=== PATIENT | male | born 1980 | race Two or more races ===

== ENCOUNTER 2016-08-20 15:57 | Emergency (ER) | payer MEDICAID ==
[~2016-08-20] VITALS: Ht 175.3 cm; Wt 117.9 kg
[~2016-08-20 15:57] MED LIST: ALBUTEROL2.5 MG/3 M HHN; AMLODIPINE BESY10 MG ORAL; ASPIRIN500 MG ORAL; ATIVAN1 MG ORAL; NORCO1 EA ORAL; OMEPRAZOLE20 M2 ORAL; ONDANSETRON ODT4 MG ORAL; PRILOSEC20 MG ORAL; PROPANOL; PROPANOLOL; RANITIDINE HCL150 MG PO; RANTIDINE; ZANTAC 7575 MG PO; ZANTAC150 MG PO
[2016-08-20 16:09] VITALS: BP 139/86
--- NOTE | 2016-08-20 16:14 | Emergency Room Report ---
History of Present Illness General Chief Complaint: Palpitations Source: Patient Present Illness HPI Patient is a 36-year-old male presented after increased palpitations. Patient gradual onset of symptoms. Patient was noted to have intermittent episodes which he felt like his heart was racing. Patient prior history of similar symptoms and had been taking Cardizem as well as beta antwon. The patient denied any recent fever. He reported have some episodes of vomiting earlier in the day. The patient denied any chest pain. He denies any prior cardiac history and states that a negative stress test with a past one year. Allergies: Coded Allergies: No Known Allergies (Unverified , 03/22/12) Patient History Past Medical History: see triage record Reviewed Nursing Documentation: PMH: Agreed, PSxH: Agreed Nursing Documentation-PMH Past Medical History: No History, Except For Hx Hypertension: Yes Hx Asthma: Yes Hx Gastrointestinal Problems: Yes - gerd pancreatitis for one year Review of Systems All Other Systems: negative except mentioned in HPI Physical Exam Vital Signs Date Time Temp Pulse Resp B/P Pulse Ox O2 Delivery O2 Flow Rate FiO2 08/20/16 16:00 97.7 87 16 152/84 100 Room Air Sp02 EP Interpretation: reviewed, normal General Appearance: normal inspection, well appearing, no apparent distress, alert, GCS 15 Head: atraumatic ENT: normal ENT inspection, hearing grossly normal, normal voice, uvula midline , tonsillar swelling Neck: normal inspection, full range of motion, supple, no bony tend Respiratory: normal inspection, lungs clear, normal breath sounds, no respiratory distress, no retraction, no wheezing Cardiovascular #1: regular rate, rhythm, no edema Gastrointestinal: normal inspection, normal bowel sounds, non tender, soft, no guarding, no hernia Genitourinary: no CVA tenderness Musculoskeletal: normal inspection, back normal, normal range of motion Neurologic: normal inspection, alert, oriented x3, responsive, assistant designer III-XII nml as tested, speech normal Psychiatric: normal inspection, judgement/insight normal, mood/affect normal Skin: normal inspection, normal color, no rash Medical Decision Making Diagnostic Impression: Primary Impression: Palpitations ER Course .Patient presented for palpitations. The differential diagnosis included was not limited to arrhythmia, thyroid storm, sepsis, anemia, myocardial infarction , alcohol withdrawal, stimulant abuse, caffeine overdose among others. Because of complexity of patient's case laboratory testing and imaging studies were ordered.Patient presented for palpitations.Patient presented for palpitations. The differential diagnosis included was not limited to arrhythmia, thyroid storm , sepsis, anemia, myocardial infarction, alcohol withdrawal, stimulant abuse, caffeine overdose among others. Because of complexity of patient's case laboratory testing and imaging studies were ordered. Laboratory testing was unremarkable. Patient stated he felt better. Patient was advised to continue his previously prescribed medications and to return if he had any worsening of condition or concerning signs or symptoms. Laboratory Tests Test 08/20/16 16:19 White Blood Count 6.2 K/UL (4.8-10.8) Red Blood Count 5.31 M/UL (4.70-6.10) Hemoglobin 15.2 G/DL (14.2-18.0) Hematocrit 45.0 % (42.0-52.0) Mean Corpuscular Volume 85 FL (80-99) Mean Corpuscular Hemoglobin 28.5 PG (27.0-31.0) Mean Corpuscular Hemoglobin Concent 33.7 G/DL (32.0-36.0) Red Cell Distribution Width 11.4 % (11.6-14.8) L Platelet Count 225 K/UL (150-450) Mean Platelet Volume 9.6 FL (6.5-10.1) Neutrophils (%) (Auto) 67.2 % (45.0-75.0) Lymphocytes (%) (Auto) 24.7 % (20.0-45.0) Monocytes (%) (Auto) 6.3 % (1.0-10.0) Eosinophils (%) (Auto) 0.7 % (0.0-3.0) Basophils (%) (Auto) 1.1 % (0.0-2.0) Sodium Level 140 mEQ/L (135-145) Potassium Level 3.9 mEQ/L (3.4-4.9) Chloride Level 99 mEQ/L (98-107) Carbon Dioxide Level 24 mEQ/L (20-30) Anion Gap 17 (5-15) H Blood Urea Nitrogen 14 mg/dL (7-23) Creatinine 0.7 mg/dL (0.7-1.2) Estimate Glomerular Filtration Rate > 60 mL/min (>60) Glucose Level 88 mg/dL (74-106) Calcium Level 9.5 mg/dL (8.6-10.2) Total Bilirubin 0.5 mg/dL (0.0-1.2) Aspartate Amino Transferase (AST) 17 U/L (5-40) Alanine Aminotransferase (ALT) 21 U/L (3-41) Alkaline Phosphatase 51 U/L (40-129) Troponin I < 0.30 ng/mL (<=0.30) Total Protein 7.5 g/dL (6.6-8.7) Albumin 4.7 g/dL (3.5-5.2) Globulin 2.8 g/dL Albumin/Globulin Ratio 1.6 (1.0-2.7) Urine Opiates Screen Negative (NEGATIVE) Urine Barbiturates Screen Negative (NEGATIVE) Phencyclidine (PCP) Screen Negative (NEGATIVE) Urine Amphetamines Screen Negative (NEGATIVE) Urine Benzodiazepines Screen Negative (NEGATIVE) Urine Cocaine Screen Negative (NEGATIVE) Urine Marijuana (THC) Screen Negative (NEGATIVE) EKG Diagnostic Results Rate: normal Rhythm: NSR ST Segments: no acute changes Rhythm Strip Diag. Results EP Interpretation: yes Rhythm: NSR, no PVC's, no ectopy Chest X-Ray Diagnostic Results EP Interpretation: Yes Findings: no consolidation, no effusion, no pneumothorax, no acute cardiopulmonary disease Number of Views: 1 Last Vital Signs Date Time Temp Pulse Resp B/P Pulse Ox O2 Delivery O2 Flow Rate FiO2 08/20/16 16:09 97.7 85 26 139/86 100 Room Air Status: improved Disposition: HOME, SELF-CARE Condition: Stable Parviz Delacruz Aug 20, 2016 16:14
[2016-08-20 16:52] LABS: BASOPHILS % (AUTO) 1.1 % (0.0-2.0); EOSINOPHILS % (AUTO) 0.7 % (0.0-3.0); LYMPHOCYTES % (AUTO) 24.7 % (20.0-45.0); MEAN CORPUSCULAR HEMOGLOBIN 28.5 PG (27.0-31.0); MEAN CORPUSCULAR HGB CONC 33.7 G/DL (32.0-36.0); MEAN CORPUSCULAR VOLUME 85 FL (80-99); MEAN PLATELET VOLUME 9.6 FL (6.5-10.1); MONOCYTES % (AUTO) 6.3 % (1.0-10.0); NEUTROPHILS % (AUTO) 67.2 % (45.0-75.0); PLATELET COUNT 225 K/UL (150-450); RED BLOOD COUNT 5.31 M/UL (4.70-6.10); RED CELL DISTRIBUTION WIDTH 11.4 % (11.6-14.8); WHITE BLOOD COUNT 6.2 K/UL (4.8-10.8)
[2016-08-20 17:05] LABS: TROPONIN I < 0.30 ng/mL (<=0.30)
[2016-08-20 17:08] LABS: ALANINE AMINOTRANSFERASE 21 U/L (3-41); ALBUMIN/GLOBULIN RATIO 1.6 (1.0-2.7); ANION GAP 17 (5-15); ASPARTATE AMINO TRANSFERASE 17 U/L (5-40); CALCIUM 9.5 mg/dL (8.6-10.2); CARBON DIOXIDE 24 mEQ/L (20-30); CHLORIDE 99 mEQ/L (98-107); CREATININE 0.7 mg/dL (0.7-1.2); GLOMERULAR FILTRATION RATE > 60 mL/min (>60); HEMOLYSIS 5; POTASSIUM 3.9 mEQ/L (3.4-4.9); SODIUM 140 mEQ/L (135-145); TOTAL PROTEIN 7.5 g/dL (6.6-8.7)
[2016-08-20 17:28] VITALS: BP 139/86
--- NOTE | 2016-08-21 09:59 | Diagnostic Imaging Report ---
Indication: PAIN Technique: One view of the chest Comparison: 05/24/2014 Findings: Lungs and pleural spaces are clear. Heart size is normal. No significant change Impression: No acute process
--- NOTE | 2016-08-23 03:10 | Cardiology Report ---
APPROVED REPORT EKG Measurement Heart [id number] Normal sinus rhythm Normal ECG
== END 2016-08-20 17:30 | disposition home or self-care (01) ==
LOC: EMR 16:22
DX: R00.2 Palpitations (principal); I10 Essential (primary) hypertension; J45.909 Unspecified asthma, uncomplicated; K21.9 Gastro-esophageal reflux disease without esophagitis
CPT/HCPCS: 36415; 71010; 80053; 80300; 84484; 85025; 93005; 99283

== ENCOUNTER 2016-11-23 08:59 | Emergency (ER) | payer MEDICAID ==
[~2016-11-23] VITALS: Ht 172.7 cm; Wt 115.7 kg
[2016-11-23 09:10] VITALS: BP 135/92
[2016-11-23] MEDS ORDERED: OMEPRAZOLE20 M3 ORAL (09:16)
--- NOTE | 2016-11-23 09:19 | Emergency Room Report ---
History of Present Illness General Chief Complaint: Sore Throat Source: Patient Present Illness HPI Patient is a 36-year-old male who presented after increased sore throat. Patient gradual onset of symptoms over the past 2 weeks. Patient had recently been started on azithromycin by his primary care physician several days ago. Patient denied any fever. He had prior history of gastroesophageal reflux disease. Patient reports having a recent alcohol use as well as increased by spicy food. Patient denies any change in his voice. He had not had any neck stiffness. Allergies: Coded Allergies: No Known Allergies (Unverified , 03/22/12) Patient History Reviewed Nursing Documentation: PMH: Agreed, PSxH: Agreed Nursing Documentation-PM Past Medical History: No History, Except For Hx Hypertension: Yes Hx Asthma: Yes Hx Gastrointestinal Problems: Yes - gerd, pancreatitis Review of Systems All Other Systems: negative except mentioned in HPI Physical Exam Vital Signs Date Time Temp Pulse Resp B/P Pulse Ox O2 Delivery O2 Flow Rate FiO2 11/23/16 09:04 98.2 78 18 135/92 98 Room Air General Appearance: well appearing, no apparent distress Head: normocephalic, atraumatic ENT: hearing grossly normal, normal voice Neck: full range of motion, supple Respiratory: no respiratory distress, speaking full sentences Gastrointestinal: normal inspection, non tender, soft Musculoskeletal: no calf tenderness Neurologic: normal gait Psychiatric: mood/affect normal Skin: no rash Medical Decision Making Diagnostic Impression: Primary Impression: Tonsillitis ER Course Patient presented per sore throat. Differential diagnosis included but was not limited to meningitis, exudative tonsillitis, retropharyngeal abscess, epiglottitis, strep pharyngitis. Patient's benign exam and does not appear to require any further imaging or laboratory testing at this time. The patient is advised to follow up with primary care doctor in 1-2 days. Patient is advised to return if any worsening condition or if any changes in status that are concerning. Last Vital Signs Date Time Temp Pulse Resp B/P Pulse Ox O2 Delivery O2 Flow Rate FiO2 11/23/16 09:10 98.2 73 18 135/92 98 Room Air Status: improved Disposition: HOME, SELF-CARE Condition: Stable Scripts Omeprazole (OMEPRAZOLE) 20 Mg Tablet. 20 MG ORAL DAILY, #30 TAB Prov: Parviz Delacruz 11/23/16 Referrals: primary care physician Patient Instructions: Tonsillitis, Gastroesophageal Reflux Disease, Adult Parviz Delacruz November 23, 2016 09:19
[2016-11-23 09:29] VITALS: BP 135/92
== END 2016-11-23 09:31 | disposition home or self-care (01) ==
LOC: EMR 09:22
DX: J03.90 Acute tonsillitis, unspecified (principal); K21.9 Gastro-esophageal reflux disease without esophagitis; I10 Essential (primary) hypertension; J45.909 Unspecified asthma, uncomplicated
CPT/HCPCS: 99283

== ENCOUNTER 2017-03-29 08:05 | Emergency (ER) | payer BC, MEDICAID ==
[~2017-03-29] VITALS: Ht 175.3 cm; Wt 113.4 kg
[~2017-03-29 08:05] MED LIST changes: +OMEPRAZOLE20 M3 ORAL
[2017-03-29] MEDS ORDERED: Ciprofloxacin 500mg tab ORAL ONE (08:30)
--- NOTE | 2017-03-29 08:32 | Emergency Room Report ---
History of Present Illness General Chief Complaint: Earache Source: Patient Present Illness HPI The patient presents with left-sided sharp pain. It started yesterday. Coming from his ear and radiates down into his neck. He is able to swallow. He tried taking Tylenol and hasn't helped. The pain is severe at this time. Denies any fevers or chills. Denies any cough nausea vomiting diarrhea dysuria rashes. Feels that the lymph nodes were painful at this time however they don't feel to be swollen. Pain is 8/10, pressure and aching. Some pain with swallowing. He was seen in October with tonsillitis. 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: PMH: Agreed, PSxH: Agreed Nursing Documentation-PMH Past Medical History: No History, Except For Hx Hypertension: Yes Hx Asthma: Yes Hx Gastrointestinal Problems: Yes - gerd, pancreatitis Review of Systems All Other Systems: negative except mentioned in HPI Physical Exam Vital Signs Date Time Temp Pulse Resp B/P (MAP) Pulse Ox O2 Delivery O2 Flow Rate FiO2 03/29/17 08:10 98.1 88 18 136/94 98 Room Air Sp02 EP Interpretation: reviewed, normal General Appearance: well appearing, no apparent distress Head: normocephalic, atraumatic Eyes: bilateral eye normal inspection, bilateral eye PERRL ENT: hearing grossly normal, no angioedema, normal voice, moist mucus membranes , pharyngeal erythema, other - L Tm with min erythema, some mastoid tenderness Neck: full range of motion, supple, tender - laterally Respiratory: lungs clear, normal breath sounds, no respiratory distress, speaking full sentences Cardiovascular #1: regular rate, rhythm Gastrointestinal: normal inspection Musculoskeletal: back normal, digits/nails normal, gait/station normal, normal range of motion Neurologic: alert, normal gait, grossly normal Psychiatric: mood/affect normal Skin: no rash Lymphatic: adenopathy - neck Medical Decision Making Diagnostic Impression: Primary Impression: Earache, left Additional Impression: Tonsillitis ER Course Patient with ear, throat and neck tenderness. Ddx: OM, OE, mastoiditis, pharyngitis, viral syndrome, lymphadenitis amongst others. Exam most c/w OM with possible early mastoiditis. Needs antibiotic coverage with also coverage for possible pseudomonas. Not toxic and no evidence of meningitis. Exam not classic for strep. Noted patient treated for tonsilitis in past. Antibiotics and analgesia given in ED. Patient stable for outpatient observation and treatment. Last Vital Signs Date Time Temp Pulse Resp B/P (MAP) Pulse Ox O2 Delivery O2 Flow Rate FiO2 03/29/17 08:49 71 14 127/84 96 Room Air 03/29/17 08:10 98.1 Status: unchanged Disposition: HOME, SELF-CARE Condition: Improved Scripts Ibuprofen* (MOTRIN*) 600 Mg Tablet 600 MG ORAL Q6H Y for For Pain, #20 TAB Prov: Keith Gonzalez M.D. 03/29/17 Hydrocodone Bit/Acetaminophen 5-325* (NORCO 5-325*) 1 Each Tablet 1 TAB ORAL Q6H Y for For Pain, #10 TAB 0 Refills Prov: Keith Gonzalez M.D. 03/29/17 Ciprofloxacin Hcl* (CIPROFLOXACIN HCL*) 500 Mg Tablet 500 MG ORAL Q12H, #14 TAB 0 Refills Prov: Keith Gonzalez M.D. 03/29/17 Keith Gonzalez M.D. Mar 29, 2017 08:32
[2017-03-29] MEDS ORDERED: IBUPROFEN600 MG ORAL (08:34)
[2017-03-29] MEDS ORDERED: CIPROFLOXACIN500 M2 ORAL (08:34)
[2017-03-29] MEDS ORDERED: NORCO 5-325 TA1 EACH ORAL (08:34)
[2017-03-29 08:49] VITALS: BP 127/84
== END 2017-03-29 08:49 | disposition home or self-care (01) ==
LOC: EMR 08:36
DX: H92.02 Otalgia, left ear (principal); J03.91 Acute recurrent tonsillitis, unspecified; I10 Essential (primary) hypertension; J45.909 Unspecified asthma, uncomplicated
CPT/HCPCS: 99284

== ENCOUNTER 2017-04-05 16:56 | Emergency (ER) | payer BC, MEDICAID ==
[~2017-04-05] VITALS: Ht 175.3 cm; Wt 117.9 kg
[~2017-04-05 16:56] MED LIST changes: +CIPROFLOXACIN500 M2 ORAL; +IBUPROFEN600 MG ORAL; +NORCO 5-325 TA1 EACH ORAL
[2017-04-05 17:07] VITALS: BP 124/75
[2017-04-05] MEDS ORDERED: LORazepam Inj 2mg/ml 1ml IV ONE (17:15)
[2017-04-05 17:20] LABS: BASOPHILS % (AUTO) 1.4 % (0.0-2.0); EOSINOPHILS % (AUTO) 0.6 % (0.0-3.0); LYMPHOCYTES % (AUTO) 23.1 % (20.0-45.0); MEAN CORPUSCULAR HEMOGLOBIN 27.5 PG (27.0-31.0); MEAN CORPUSCULAR HGB CONC 30.9 G/DL (32.0-36.0); MEAN CORPUSCULAR VOLUME 89 FL (80-99); MEAN PLATELET VOLUME 9.3 FL (6.5-10.1); MONOCYTES % (AUTO) 5.3 % (1.0-10.0); NEUTROPHILS % (AUTO) 69.6 % (45.0-75.0); PLATELET COUNT 268 K/UL (150-450); RED BLOOD COUNT 5.93 M/UL (4.70-6.10); RED CELL DISTRIBUTION WIDTH 11.4 % (11.6-14.8); WHITE BLOOD COUNT 8.9 K/UL (4.8-10.8)
--- NOTE | 2017-04-05 17:29 | Emergency Room Report ---
History of Present Illness General Chief Complaint: Chest Pain Source: Patient Present Illness HPI Patient presents feeling palpitations and pressure in his chest that began this morning. He has episodes where his heart rate is rapid. He feels anxious with this and short of breath. Is also some nausea. He took propranolol approximately an hour ago, 10 mg. He states he feels somewhat better at this time but he still feels anxious. He's had this problem before. He was treated for otitis 2 weeks ago here. Saw his private doctor last week and was told that his potassium was low and his triglycerides are high. His HTN meds were switched at that time. The patient was drinking beer yesterday but not an excessive amount of. He does feel stressed and is approaching 6 days off of work. The patient denies any fevers, sore throat, vomiting, diarrhea, dysuria. The patient is been seen for this problem in the past. 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 Nursing Documentation: PMH: Agreed, PSxH: Agreed Nursing Documentation-PMH Hx Hypertension: Yes Hx Asthma: Yes Hx Gastrointestinal Problems: Yes - gerd, pancreatitis Review of Systems All Other Systems: negative except mentioned in HPI Physical Exam Vital Signs Date Time Temp Pulse Resp B/P (MAP) Pulse Ox O2 Delivery O2 Flow Rate FiO2 04/05/17 16:57 98.2 89 20 128/88 99 Room Air Sp02 EP Interpretation: reviewed, normal General Appearance: well appearing, no apparent distress, GCS 15 Head: normocephalic Eyes: bilateral eye normal inspection, bilateral eye PERRL ENT: moist mucus membranes Neck: supple Respiratory: lungs clear, normal breath sounds Cardiovascular #1: regular rate, rhythm Cardiovascular #2: 2+ radial (R) Gastrointestinal: normal inspection, normal bowel sounds, non tender, no mass, non-distended, overweight Musculoskeletal: back normal, gait/station normal, normal range of motion Neurologic: alert, oriented x3, grossly normal Psychiatric: anxious Skin: normal inspection, warm/dry Medical Decision Making Diagnostic Impression: Primary Impression: Palpitations Additional Impressions: Anxiety Hypokalemia ER Course Patient presents with palpitations and chest pressure with anxiety. Differential includes acute myocardial infarction, arrhythmia, anxiety, pulmonary embolus amongst others. Also he was recently told his potassium was low and so yet to be concerned about possible electrolyte abnormalities. The patient will be evaluated with EKG, chest x-ray and labs. The patient be treated with some IV hydration and Ativan. VS, exam and history against PE. EKG normal sinus rhythm normal EKG no evidence of acute injury. Labs with minimally low K. (K given). H/H high. Patient felt episode of rapid HR at 18:30. Review of monitor revealed no arrhythmia. Patient improved. Discussed change in BP meds. Patient stable for outpatient observation and treatment. Laboratory Tests Test 04/05/17 17:03 04/05/17 17:35 White Blood Count 8.9 K/UL (4.8-10.8) Red Blood Count 5.93 M/UL (4.70-6.10) Hemoglobin 16.3 G/DL (14.2-18.0) Hematocrit 52.6 % (42.0-52.0) H Mean Corpuscular Volume 89 FL (80-99) Mean Corpuscular Hemoglobin 27.5 PG (27.0-31.0) Mean Corpuscular Hemoglobin Concent 30.9 G/DL (32.0-36.0) L Red Cell Distribution Width 11.4 % (11.6-14.8) L Platelet Count 268 K/UL (150-450) Mean Platelet Volume 9.3 FL (6.5-10.1) Neutrophils (%) (Auto) 69.6 % (45.0-75.0) Lymphocytes (%) (Auto) 23.1 % (20.0-45.0) Monocytes (%) (Auto) 5.3 % (1.0-10.0) Eosinophils (%) (Auto) 0.6 % (0.0-3.0) Basophils (%) (Auto) 1.4 % (0.0-2.0) Sodium Level 137 MMOL/L (136-145) Potassium Level 3.4 MMOL/L (3.5-5.1) L Chloride Level 100 MMOL/L (98-107) Carbon Dioxide Level 27 MMOL/L (21-32) Anion Gap 10 (5-15) Blood Urea Nitrogen 12 mg/dL (7-18) Creatinine 1.0 MG/DL (0.55-1.00) Estimate Glomerular Filtration Rate > 60 mL/min (>60) Glucose Level 102 MG/DL (74-106) Calcium Level 9.4 MG/DL (8.5-10.1) Total Bilirubin 0.5 MG/DL (0.2-1.0) Aspartate Amino Transferase (AST) 17 U/L (15-37) Alanine Aminotransferase (ALT) 28 U/L (12-78) Alkaline Phosphatase 63 U/L (46-116) Total Creatine Kinase 167 U/L (26-308) Troponin I 0.001 ng/mL (0.000-0.056) Pro-B-Type Natriuretic Peptide 9 (0-125) Total Protein 8.7 G/DL (6.4-8.2) H Albumin 4.2 G/DL (3.4-5.0) Globulin 4.5 g/dL Albumin/Globulin Ratio 0.9 (1.0-2.7) L Urine Color Pale yellow Urine Appearance Clear Urine pH 6 (4.5-8.0) Urine Specific [place] 1.020 (1.005-1.035) Urine Protein Negative (NEGATIVE) Urine Glucose (UA) Negative (NEGATIVE) Urine Ketones Negative (NEGATIVE) Urine Occult Blood Negative (NEGATIVE) Urine Nitrite Negative (NEGATIVE) Urine Bilirubin Negative (NEGATIVE) Urine Urobilinogen Normal MG/DL (0.0-1.0) Urine Leukocyte Esterase Negative (NEGATIVE) Urine Opiates Screen Negative (NEGATIVE) Urine Barbiturates Screen Negative (NEGATIVE) Phencyclidine (PCP) Screen Negative (NEGATIVE) Urine Amphetamines Screen Negative (NEGATIVE) Urine Benzodiazepines Screen Negative (NEGATIVE) Urine Cocaine Screen Negative (NEGATIVE) Urine Marijuana (THC) Screen Negative (NEGATIVE) EKG Diagnostic Results Rate: normal Rhythm: NSR ST Segments: no acute changes Rhythm Strip Diag. Results EP Interpretation: yes Rhythm: NSR, no PVC's, no ectopy Chest X-Ray Diagnostic Results Chest X-Ray Diagnostic Results : Chest X-Ray Ordered: Yes # of Views/Limited/Complete: 1 View Indication: Other Interpretation: no consolidation, no effusion, no pneumothorax, no acute cardiopulmonary disease Impression: No acute disease Electronically Signed by: Keith Gonzalez MD Last Vital Signs Date Time Temp Pulse Resp B/P (MAP) Pulse Ox O2 Delivery O2 Flow Rate FiO2 04/05/17 17:07 93 17 124/75 100 Room Air 10/8/17 16:57 98.2 Status: improved Disposition: HOME, SELF-CARE Condition: Improved Scripts Lorazepam* (ATIVAN*) 0.5 Mg Tablet 0.5 MG ORAL THREE TIMES A DAY, #10 TAB Prov: Keith Gonzalez M.D. 04/05/17 Triamterene/Hydrochlorothiazide* (DYAZIDE 37.5-25 MG TAB*) 1 Each Tablet 1 TAB ORAL DAILY, #30 TAB Prov: Keith Gonzalez M.D. 04/05/17 Lisinopril* (LISINOPRIL*) 10 Mg Tablet 10 MG ORAL DAILY, #30 TAB Prov: Keith Gonzalez M.D. 04/05/17 Keith Gonzalez M.D. Apr 05, 2017 17:29
[2017-04-05 17:44] LABS: ALANINE AMINOTRANSFERASE 28 U/L (12-78); ALBUMIN/GLOBULIN RATIO 0.9 (1.0-2.7); ANION GAP 10 (5-15); ASPARTATE AMINO TRANSFERASE 17 U/L (15-37); CALCIUM 9.4 MG/DL (8.5-10.1); CARBON DIOXIDE 27 MMOL/L (21-32); CHLORIDE 100 MMOL/L (98-107); GLOMERULAR FILTRATION RATE > 60 mL/min (>60); POTASSIUM 3.4 MMOL/L (3.5-5.1); SODIUM 137 MMOL/L (136-145); TOTAL PROTEIN 8.7 G/DL (6.4-8.2)
[2017-04-05 17:54] LABS: APPEARANCE,URINE CLEAR; KETONES,URINE NEGATIVE (NEGATIVE); LEUKOCYTE ESTERASE ,URINE NEGATIVE (NEGATIVE); NITRITE,URINE NEGATIVE (NEGATIVE); PH,URINE 6 (4.5-8.0); PROTEIN,URINE NEGATIVE (NEGATIVE); UROBILINOGEN,URINE NORMAL MG/DL (0.0-1.0)
[2017-04-05] MEDS ORDERED: KCl 10% 40mEq/30ml liquid ORAL STA (18:26)
[2017-04-05] MEDS ORDERED: LISINOPRIL10 MG ORAL (19:33)
[2017-04-05] MEDS ORDERED: TRIAMTERENE-HC1 EAC5 ORAL (19:33)
[2017-04-05] MEDS ORDERED: ATIVAN0.5 MG ORAL (19:33)
[2017-04-05 19:56] VITALS: BP 124/75
--- NOTE | 2017-04-06 10:48 | Diagnostic Imaging Report ---
Indication: Dyspnea Comparison: 08/20/16 A single view chest radiograph was obtained. Findings: Lungs are clear. Cardio mediastinal silhouette and bones appear normal. Impression: No acute disease
--- NOTE | 2017-04-07 08:10 | Cardiology Report ---
APPROVED REPORT EKG Measurement Heart [id number] Normal sinus rhythm Normal ECG
== END 2017-04-05 19:56 | disposition home or self-care (01) ==
LOC: EMR 17:49
DX: R00.2 Palpitations (principal); F41.9 Anxiety disorder, unspecified; E87.6 Hypokalemia; R07.89 Other chest pain; I10 Essential (primary) hypertension; J45.909 Unspecified asthma, uncomplicated
CPT/HCPCS: 36415; 71010; 80053; 80300; 81003; 82550; 83880; 84484; 85025; 93005; 96374; 96375; 99284; J2405

== ENCOUNTER 2017-07-23 09:32 | Emergency (ER) | payer BC, MEDICAID ==
[~2017-07-23] VITALS: Ht 172.7 cm; Wt 90.7 kg
[~2017-07-23 09:32] MED LIST changes: +ATIVAN0.5 MG ORAL; +LISINOPRIL10 MG ORAL; +TRIAMTERENE-HC1 EAC5 ORAL
[2017-07-23] MEDS ORDERED: HYDROCHLOROTH12.5 M2 ORAL (09:44)
[2017-07-23] MEDS ORDERED: BENADRYL25 MG ORAL (09:47)
[2017-07-23] MEDS ORDERED: PREDNISONE20 MG ORAL (09:47)
[2017-07-23 09:53] VITALS: BP 156/85
[2017-07-23 09:56] VITALS: BP 156/85
--- NOTE | 2017-07-28 14:58 | Emergency Room Report ---
History of Present Illness General Chief Complaint: Skin Rash/Abscess Source: Patient Present Illness HPI Patient is a 37-year-old male brought in by self after increased the itchiness to his abdominal area. Patient reported having a generalized rash. This did not have any drainage. Patient prior history of eczema. He denied any recent fever or difficulty breathing. Allergies: Coded Allergies: No Known Allergies (Unverified , 03/22/12) Patient History Past Medical History: see triage record Reviewed Nursing Documentation: PMH: Agreed, PSxH: Agreed Nursing Documentation-PMH Past Medical History: No History, Except For Hx Hypertension: Yes Hx Asthma: Yes Hx Gastrointestinal Problems: Yes - gerd, pancreatitis Review of Systems All Other Systems: negative except mentioned in HPI Physical Exam Vital Signs Date Time Temp Pulse Resp B/P (MAP) Pulse Ox O2 Delivery O2 Flow Rate FiO2 07/23/17 09:42 98.4 90 16 156/85 99 Room Air General Appearance: well appearing, no apparent distress, alert, GCS 15 Head: normocephalic, atraumatic ENT: hearing grossly normal, normal voice Neck: full range of motion, supple Respiratory: no respiratory distress, speaking full sentences Cardiovascular #1: normal inspection, regular rate, rhythm, no edema Gastrointestinal: normal inspection, non tender, soft Musculoskeletal: normal inspection, back normal, digits/nails normal, gait/ station normal, no calf tenderness Neurologic: normal inspection, alert, oriented x3, normal gait Psychiatric: mood/affect normal Skin: other - generalized papular rash Medical Decision Making Diagnostic Impression: Primary Impression: Rash and nonspecific skin eruption ER Course Patient presented for skin rash. Differential diagnosis included was not limited to Keene-Roney syndrome, urticaria, erythema multiforme, contact dermatitis, eczema. Patient's benign exam and does not appear to require any further imaging or laboratory testing at this time. The patient appears have an eczematous skin eruption. Patient was given a prescription for oral steroid and antihistamine. the patient does not show any evidence of an acute allergic reaction The patient is advised to follow up with primary care doctor in 1-2 days. Patient is advised to return if any worsening condition or if any changes in status that are concerning. This report is dictated with [employer] associate software which may occasionally lead to discrepancies related to use of this software. Last Vital Signs Date Time Temp Pulse Resp B/P (MAP) Pulse Ox O2 Delivery O2 Flow Rate FiO2 07/23/17 09:56 98.4 90 16 156/85 99 Room Air Status: improved Disposition: HOME, SELF-CARE Condition: Stable Scripts Diphenhydramine Hcl* (BENADRYL*) 25 Mg Capsule 25 MG ORAL Q6H Y for Itching, #20 CAP Prov: Parviz Delacruz 07/23/17 Prednisone* (PREDNISONE*) 20 Mg Tablet 20 MG ORAL DAILY, #8 TAB 0 Refills Prov: Parviz Delacruz 07/23/17 Referrals: NOT CHOSEN IPA/MD,REFERRING Patient Instructions: Parviz Montanez Jul 28, 2017 14:58
== END 2017-07-23 09:58 | disposition home or self-care (01) ==
LOC: EMR 09:43
DX: R21 Rash and other nonspecific skin eruption (principal); J45.909 Unspecified asthma, uncomplicated; I10 Essential (primary) hypertension; K21.9 Gastro-esophageal reflux disease without esophagitis
CPT/HCPCS: 99283; J7512

== ENCOUNTER 2017-10-13 12:12 | Emergency (ER) | payer MEDICAID ==
[~2017-10-13] VITALS: Ht 175.3 cm; Wt 120.2 kg
[~2017-10-13 12:12] MED LIST changes: +BENADRYL25 MG ORAL; +HYDROCHLOROTH12.5 M2 ORAL; +PREDNISONE20 MG ORAL
[2017-10-13] MEDS ORDERED: NORVASC10 MG ORAL (12:20)
[2017-10-13] MEDS ORDERED: SERTRALINE HCL50 MG ORAL (12:20)
[2017-10-13 12:24] VITALS: BP 137/81
[2017-10-13 13:00] LABS: APPEARANCE,URINE CLEAR; BILIRUBIN, URINE NEGATIVE (NEGATIVE); COLOR,URINE PALE YELLOW; GLUCOSE, URINE (UA) NEGATIVE (NEGATIVE); KETONES,URINE NEGATIVE (NEGATIVE); LEUKOCYTE ESTERASE ,URINE NEGATIVE (NEGATIVE); NITRITE,URINE NEGATIVE (NEGATIVE); PH,URINE 5 (4.5-8.0); PROTEIN,URINE NEGATIVE (NEGATIVE); UROBILINOGEN,URINE NORMAL MG/DL (0.0-1.0)
[2017-10-13 13:09] LABS: BASOPHILS % (AUTO) 1.6 % (0.0-2.0); EOSINOPHILS % (AUTO) 0.8 % (0.0-3.0); HEMATOCRIT 47.3 % (42.0-52.0); HEMOGLOBIN 16.5 G/DL (14.2-18.0); LYMPHOCYTES % (AUTO) 22.7 % (20.0-45.0); MEAN CORPUSCULAR VOLUME 85 FL (80-99); MONOCYTES % (AUTO) 4.9 % (1.0-10.0); NEUTROPHILS % (AUTO) 69.9 % (45.0-75.0); PLATELET COUNT 211 K/UL (150-450); RED BLOOD COUNT 5.54 M/UL (4.70-6.10); RED CELL DISTRIBUTION WIDTH 11.5 % (11.6-14.8); WHITE BLOOD COUNT 5.7 K/UL (4.8-10.8)
[2017-10-13 13:27] LABS: ANION GAP 12 mmol/L (5-15); BLOOD UREA NITROGEN 14 mg/dL (7-18); CALCIUM 8.9 MG/DL (8.5-10.1); CARBON DIOXIDE 23 MMOL/L (21-32); CHLORIDE 103 MMOL/L (98-107); CREATININE 0.8 MG/DL (0.55-1.30); POTASSIUM 3.9 MMOL/L (3.5-5.1); SODIUM 138 MMOL/L (136-145)
[2017-10-13 13:32] LABS: ALANINE AMINOTRANSFERASE 34 U/L (12-78); ALBUMIN 4.3 G/DL (3.4-5.0); ALKALINE PHOSPHATASE 58 U/L (46-116); ASPARTATE AMINO TRANSFERASE 20 U/L (15-37); BILIRUBIN,TOTAL 0.4 MG/DL (0.2-1.0)
--- NOTE | 2017-10-13 14:13 | Emergency Room Report ---
History of Present Illness General Chief Complaint: Palpitations Source: Patient, Medical Record Present Illness HPI 37-year-old male with significant history of alcohol abuse and palpitation here complaining of continuous palpitation for the past few hours today.Patient mentions he was lifting weights when he started having the palpitations. He mentions that he has got every day and takes Norvasc and propranolol for blood pressure control. PT further mentions that the palpitations last about a few seconds however today there has been continuous and lasting more than 30 minutes denies chest pain denies SOB denies dizziness. PT did not eat or drink any liquid this morning before lifting weights at the gym. He further denies recent drug or tobacco use.Patient mentions that he drank 6 bottles of beer over the past weekend. Allergies: Coded Allergies: No Known Allergies (Unverified , 03/22/12) Patient History Past Medical History: see triage record Past Surgical History: none Pertinent Family History: none Reviewed Nursing Documentation: PMH: Agreed; PSxH: Agreed Nursing Documentation-PMH Past Medical History: No History, Except For Hx Hypertension: Yes Hx Asthma: Yes Hx Gastrointestinal Problems: Yes - gerd, pancreatitis Review of Systems All Other Systems: negative except mentioned in HPI Physical Exam Vital Signs Date Time Temp Pulse Resp B/P (MAP) Pulse Ox O2 Delivery O2 Flow Rate FiO2 10/13/18 12:16 97.8 98 18 137/81 97 Room Air 97.9 Sp02 EP Interpretation: reviewed, normal General Appearance: no apparent distress, alert, GCS 15, non-toxic Head: normocephalic, atraumatic Eyes: bilateral eye normal inspection, bilateral eye PERRL Neck: full range of motion, supple, no carotid bruits, supple/symm/no masses Respiratory: chest non-tender, lungs clear, normal breath sounds, no rhonchi, no respiratory distress, no retraction, no accessory muscle use, no wheezing, speaking full sentences Cardiovascular #1: normal inspection, normal peripheral pulses, regular rate, rhythm, no edema, no murmur, no rub, normal capillary refill Cardiovascular #2: 2+ carotid (R), 2+ carotid (L), 2+ radial (R), 2+ radial (L) Gastrointestinal: normal inspection, normal bowel sounds, non tender, soft, non -distended, no guarding, no rebound Rectal: deferred Genitourinary: normal inspection, no CVA tenderness Musculoskeletal: back normal, gait/station normal, normal range of motion, non- tender, no calf tenderness Neurologic: alert, oriented x3, responsive, motor strength/tone normal, sensory intact, speech normal Psychiatric: judgement/insight normal, memory normal, mood/affect normal, no suicidal/homicidal ideation Skin: normal color, no rash, warm/dry, well hydrated Lymphatic: no adenopathy Medical Decision Making PA Attestation Dr. Delacruz is my supervising physician and agrees with management and plan Reaction to Intervention: Improved Diagnostic Impression: Primary Impression: Palpitations ER Course 37-year-old male with significant history of alcohol abuse and palpitation here complaining of continuous palpitation for the past few hours today.Patient mentions he was lifting weights when he started having the palpitations. He mentions that he has got every day and takes Norvasc and propranolol for blood pressure control. PT further mentions that the palpitations last about a few seconds however today there has been continuous and lasting more than 30 minutes denies chest pain denies SOB denies dizziness. PT did not eat or drink any liquid this morning before lifting weights at the gym. He further denies recent drug or tobacco use.patient mentions that over the weekend he drank 6 bottles of beer. Ddx considered but are not limited to AR, intoxication, anxiety Vital signs: are WNL, pt. is afebrile H&PE are most consistent with palpitations are due to anxiety and dehydration ORDERS:chest x-ray EKG CMP urinalysis CBC and drug screening test were ordered. All within normal limits at this time ED INTERVENTIONS: patient is a follow-up with PCP for alcohol abuse and anxiety relief DISCHARGE: At this time pt. is stable for d/c to home. Will provide printed patient care instructions, and any necessary prescriptions. Care plan and follow up instructions have been discussed with the patient prior to discharge. Laboratory Tests Test 10/13/17 12:45 White Blood Count 5.7 K/UL (4.8-10.8) Red Blood Count 5.54 M/UL (4.70-6.10) Hemoglobin 16.5 G/DL (14.2-18.0) Hematocrit 47.3 % (42.0-52.0) Mean Corpuscular Volume 85 FL (80-99) Mean Corpuscular Hemoglobin 29.8 PG (27.0-31.0) Mean Corpuscular Hemoglobin Concent 34.9 G/DL (32.0-36.0) Red Cell Distribution Width 11.5 % (11.6-14.8) L Platelet Count 211 K/UL (150-450) Mean Platelet Volume 9.6 FL (6.5-10.1) Neutrophils (%) (Auto) 69.9 % (45.0-75.0) Lymphocytes (%) (Auto) 22.7 % (20.0-45.0) Monocytes (%) (Auto) 4.9 % (1.0-10.0) Eosinophils (%) (Auto) 0.8 % (0.0-3.0) Basophils (%) (Auto) 1.6 % (0.0-2.0) Urine Color Pale yellow Urine Appearance Clear Urine pH 5 (4.5-8.0) Urine Specific [place] 1.025 (1.005-1.035) Urine Protein Negative (NEGATIVE) Urine Glucose (UA) Negative (NEGATIVE) Urine Ketones Negative (NEGATIVE) Urine Occult Blood Negative (NEGATIVE) Urine Nitrite Negative (NEGATIVE) Urine Bilirubin Negative (NEGATIVE) Urine Urobilinogen Normal MG/DL (0.0-1.0) Urine Leukocyte Esterase Negative (NEGATIVE) Urine RBC 0-2 /HPF (0 - 0) H Urine WBC 0-2 /HPF (0 - 0) Urine Squamous Epithelial Cells Occasional /LPF Urine Bacteria Few /HPF (NONE) Sodium Level 138 MMOL/L (136-145) Potassium Level 3.9 MMOL/L (3.5-5.1) Chloride Level 103 MMOL/L (98-107) Carbon Dioxide Level 23 MMOL/L (21-32) Anion Gap 12 mmol/L (5-15) Blood Urea Nitrogen 14 mg/dL (7-18) Creatinine 0.8 MG/DL (0.55-1.30) Estimate Glomerular Filtration Rate > 60 mL/min (>60) Glucose Level 98 MG/DL (74-106) Calcium Level 8.9 MG/DL (8.5-10.1) Total Bilirubin 0.4 MG/DL (0.2-1.0) Aspartate Amino Transferase (AST) 20 U/L (15-37) Alanine Aminotransferase (ALT) 34 U/L (12-78) Alkaline Phosphatase 58 U/L (46-116) Total Protein 8.5 G/DL (6.4-8.2) H Albumin 4.3 G/DL (3.4-5.0) Globulin 4.2 g/dL Albumin/Globulin Ratio 1.0 (1.0-2.7) Urine Opiates Screen Negative (NEGATIVE) Urine Barbiturates Screen Negative (NEGATIVE) Phencyclidine (PCP) Screen Negative (NEGATIVE) Urine Amphetamines Screen Negative (NEGATIVE) Urine Benzodiazepines Screen Negative (NEGATIVE) Urine Cocaine Screen Negative (NEGATIVE) Urine Marijuana (THC) Screen Negative (NEGATIVE) EKG Diagnostic Results EP Interpretation: Dr. Parviz Delacruz Rate: normal - 87 Rhythm: NSR ST Segments: no acute changes ASA given to the pt in ED: No PA Scribe Text this interpretation was prescribed by SUNI Sandy Last Vital Signs Date Time Temp Pulse Resp B/P (MAP) Pulse Ox O2 Delivery O2 Flow Rate FiO2 10/13/17 12:24 97.9 98 18 137/81 97 Room Air 97.9 Disposition: HOME, SELF-CARE Condition: Stable Referrals: NOT CHOSEN [facility]/,REFERRING (PCP) Patient Instructions: Palpitations Additional Instructions: refrain from drinking alcohol, keep hydrated, f/u with pcp for HTN and anxiety control. take propranol as directed by pcp Return to ED if worsening/new symptoms Malini Sandy Oct 13, 2017 14:13
[2017-10-13 14:27] VITALS: BP 137/81
--- NOTE | 2017-10-14 17:00 | Cardiology Report ---
APPROVED REPORT EKG Measurement Heart [id number] Normal sinus rhythm Normal ECG
== END 2017-10-13 14:28 | disposition home or self-care (01) ==
LOC: EMR 12:31
DX: R00.2 Palpitations (principal); J45.909 Unspecified asthma, uncomplicated; K21.9 Gastro-esophageal reflux disease without esophagitis
CPT/HCPCS: 36415; 80053; 80307; 81001; 85025; 93005; 99283

== ENCOUNTER 2017-11-21 11:27 | Emergency (ER) | payer MEDICAID ==
[~2017-11-21] VITALS: Ht 175.3 cm; Wt 122.5 kg
[~2017-11-21 11:27] MED LIST changes: +NORVASC10 MG ORAL; +SERTRALINE HCL50 MG ORAL
[2017-11-21] MEDS ORDERED: Ketorolac 30mg Inj IM ONE (11:45)
[2017-11-21] MEDS ORDERED: Norco 5mg/325mg tab ORAL ONE (11:45)
[2017-11-21 11:49] VITALS: BP 132/79
[2017-11-21] MEDS ORDERED: IBUPROFEN600 MG ORAL (12:36)
[2017-11-21] MEDS ORDERED: ROBAXIN-750750 MG PO (12:36)
[2017-11-21 12:43] VITALS: BP 144/70
--- NOTE | 2017-11-21 12:50 | Emergency Room Report ---
History of Present Illness General Chief Complaint: Pain Source: Patient Present Illness HPI 37-year-old male presents ED complaining of right calf pain. Started last week. Sudden onset. Denies recent injury. 9 out of 10, throbbing, nonradiating. Patient states the leg appears swollen compared to the left leg. History of back pain with bulging disks. Denies chest pain or shortness of breath. Denies fevers or chills. No other aggravating relieving factors. Denies any other associated symptoms Allergies: Coded Allergies: No Known Allergies (Unverified , 03/22/12) Patient History Past Medical History: GERD, other - pancreatitis Past Surgical History: none Pertinent Family History: none Social History: Denies: smoking, alcohol use, drug use Immunizations: UTD Reviewed Nursing Documentation: PMH: Agreed; PSxH: Agreed Nursing Documentation-PMH Hx Hypertension: Yes Hx Asthma: Yes Hx Gastrointestinal Problems: Yes - gerd, pancreatitis Review of Systems All Other Systems: negative except mentioned in HPI Physical Exam Vital Signs Date Time Temp Pulse Resp B/P (MAP) Pulse Ox O2 Delivery O2 Flow Rate FiO2 11/21/17 11:31 98.3 87 19 132/79 96 Room Air 98.2 Sp02 EP Interpretation: reviewed, normal General Appearance: no apparent distress, alert, GCS 15, non-toxic Head: normocephalic Eyes: bilateral eye normal inspection, bilateral eye PERRL ENT: normal ENT inspection Neck: normal inspection Respiratory: normal inspection Cardiovascular #1: normal inspection Gastrointestinal: normal inspection Rectal: deferred Genitourinary: no CVA tenderness Musculoskeletal: calf tenderness - RLE Neurologic: alert, oriented x3, responsive, motor strength/tone normal, sensory intact, speech normal Psychiatric: normal inspection Skin: normal inspection Lymphatic: normal inspection Medical Decision Making Diagnostic Impression: Primary Impression: Strain of calf muscle Qualified Codes: S86.811A - Strain of other muscle(s) and tendon(s) at lower leg level, right leg, initial encounter ER Course Hospital Course 37-year-old male presents ED complaining of right calf pain Differential diagnoses include: DVT, cellulitis, contusion, abscess Clinical course Patient placed on stretcher after initial history, physical exam reveals male in no acute distress. There is some palpable Tenderness and right thigh tenderness compared to the left. Does not appear swollen to me. No erythema or induration Patient does have history of bulging disks and pain could be sciatica related. However we will rule out DVT given toradol/Agar for pain Doppler ultrasound shows no evidence of DVT Likely Strain. Reassurance given. on reassessment pain is improved I. I feel this is a highly complex case requiring extensive working including EKG/Rhythm strip, Xray/CT/US, Blood/urine lab work, repeat exams while in ED, and administration of strong opiates/narcotics for pain control, admission to hospital or close patient follow up. Diagnosis - strain of calf muscle Stable and discharged to home with Rx Motrin, Robaxin. Followup with PMD. Return to ED if symptoms recur or worsen CT/MRI/US Diagnostic Results CT/MRI/US Diagnostic Results : Imaging Test Ordered: Doppler US Impression no evidence of DVT Last Vital Signs Date Time Temp Pulse Resp B/P (MAP) Pulse Ox O2 Delivery O2 Flow Rate FiO2 11/21/17 11:49 208.9 87 19 132/79 96 Room Air 208.9 Status: improved Disposition: HOME, SELF-CARE Condition: Stable Scripts Methocarbamol* (ROBAXIN-750*) 750 Mg Tablet 750 MG PO TID, #21 TAB 0 Refills Prov: Frank Wellington MD 11/21/17 Ibuprofen* (MOTRIN*) 600 Mg Tablet 600 MG ORAL Q8H PRN for For Pain, #30 TAB 0 Refills Prov: Frank Wellington MD 11/21/17 Patient Instructions: Muscle Strain, [place]-[place]-[facility] Frank Wellington MD November 21, 2017 12:50
--- NOTE | 2017-11-25 09:34 | Diagnostic Imaging Report ---
APPROVED REPORT CPT Code: 56749 Present Symptoms Comments: RIGHT LEG PAIN AND SWELLING. RIGHT LEG: Venous imaging reveals a patent deep venous system. There is no evidence of thrombus within the femoral, popliteal or tibial segments. The greater saphenous vein is also within normal limits. Doppler indicates normal spontaneous flow within these segments.
== END 2017-11-21 12:45 | disposition home or self-care (01) ==
LOC: EMR 11:58
DX: S86.811A Strain of other muscle(s) and tendon(s) at lower leg level, right leg, initial encounter (principal); I10 Essential (primary) hypertension; J45.909 Unspecified asthma, uncomplicated; K21.9 Gastro-esophageal reflux disease without esophagitis; X58.XXXA Exposure to other specified factors, initial encounter; Y92.9 Unspecified place or not applicable
CPT/HCPCS: 93971; 96372; 99284; J1885

== ENCOUNTER 2018-02-19 16:27 | Emergency (ER) | payer MEDICAID ==
[~2018-02-19] VITALS: Ht 172.7 cm; Wt 124.7 kg
[~2018-02-19 16:27] MED LIST changes: +ROBAXIN-750750 MG PO
[2018-02-19] MEDS ORDERED: PROPRANOLOL HCL10 MG ORAL (16:49)
[2018-02-19] MEDS ORDERED: Ketorolac 30mg Inj IM ONE (17:15)
--- NOTE | 2018-02-19 17:50 | Diagnostic Imaging Report ---
EXAM: CT Head Without Intravenous Contrast CLINICAL HISTORY: PAIN TECHNIQUE: Axial computed tomography images of the head/brain without intravenous contrast. CTDI is 0.15 + 70.38 mGy and DLP is 1562 mGy-cm. One or more of the following dose reduction techniques were used: automated exposure control, adjustment of the mA and/or kV according to patient size, use of iterative reconstruction technique. COMPARISON: No relevant prior studies available. FINDINGS: Brain: No hemorrhage. No edema. Ventricles: No ventriculomegaly. Bones/joints: No acute fracture. Soft tissues: Unremarkable. Sinuses: No acute sinusitis. Mastoid air cells: No mastoid effusion. IMPRESSION: No acute intracranial process.
--- NOTE | 2018-02-19 17:55 | Emergency Room Report ---
History of Present Illness General Chief Complaint: Headache Source: Patient Present Illness HPI 37 year-old male patient presents ER complaining of headache for the past 8 days. States the headache is intermittent.. Reports that a slow on onset, denies pain currently in the morning. Reports neck pain during this time. Denies fever. Reports headache is the fact of the skull, denies nausea or vomiting. Denies vision changes. Denies phonophobia or photophobia. Reports has been taking muscle relaxants and Tylenol. Denies recent injury or trauma. Denies chest pain, shortness breath, abdominal pain. Reports history of hypertension, states takes his medication well-controlled. reports has been working out recently. reports feelings of stress. Allergies: Coded Allergies: No Known Allergies (Unverified , 03/22/12) Patient History Past Medical History: see triage record Reviewed Nursing Documentation: PMH: Agreed; PSxH: Agreed Nursing Documentation-PM Past Medical History: No History, Except For Hx Hypertension: Yes Hx Asthma: Yes Hx Gastrointestinal Problems: Yes - gerd, pancreatitis Review of Systems All Other Systems: negative except mentioned in HPI Physical Exam Vital Signs Date Time Temp Pulse Resp B/P (MAP) Pulse Ox O2 Delivery O2 Flow Rate FiO2 02/19/18 16:44 98.2 77 14 144/88 95 Room Air 98.2 Sp02 EP Interpretation: reviewed, normal General Appearance: well appearing, no apparent distress, alert, GCS 15, non- toxic Head: normocephalic, atraumatic Eyes: bilateral eye normal inspection, bilateral eye PERRL ENT: hearing grossly normal, normal pharynx, no angioedema, normal voice, TMs + canals normal, uvula midline, moist mucus membranes Neck: full range of motion, no meningismus Respiratory: lungs clear, normal breath sounds, no rhonchi, no respiratory distress, no accessory muscle use, no wheezing, speaking full sentences Cardiovascular #1: regular rate, rhythm, no edema Musculoskeletal: back normal, digits/nails normal, gait/station normal, normal range of motion, non-tender Neurologic: alert, oriented x3, responsive, document reviewer III-XII nml as tested, motor strength/tone normal, SLR negative, sensory intact, cerebellar normal, normal gait, speech normal, other - negative Kernig, negative Brudzinski Psychiatric: mood/affect normal Skin: no rash Medical Decision Making PA Attestation Dr. Gonzalez is my supervising Physician whom patient management has been discussed with. Diagnostic Impression: Primary Impression: Headache ER Course Pt presents to ED c/o headache. DDX considered but are not limited to migraine, cluster [place], tension [place], meningitis, ICH, meningitis, HTN Negative Kernig, negative Brudzinski, patient afebrile, low suspicion for meningitis. VITAL SIGNS are WNL, patient is afebrile. Blood pressure mildly elevated, no chest pain shortness of breath, or continue to monitor. Blood pressure mildly elevated at this time, will continue to monitor. Denies chest pain, shortness of breath, vision changes, does not require acute intervention at ER at this time. Follow with primary care provider discuss further treatment and referral. Advised on low-sodium diet, advised on diet and exercise. ER COURSE no focal neural deficits, cranial nerves intact as tested, EOMs intact, PERRLA, TMs intact, no erythema or effusion. provided patient with Reglan, Benadryl, Toradol while in the ER. CT head shows no intracranial process. Discuss results with the patient. Provided patient with copy of results. Instructed patient to followup with PCP and discuss results of report with patient, discuss need for further treatment and referral. Patient reports pain improved. smiling, states that he feels better and is okay to be discharged home. Patient is AOx3, neurologically intact, nontoxic appearing, and ambulatory. instructed patient to contact primary care provider and discuss further treatment and referral with him at that time. Discuss referral to neurology further evaluation of headaches. DISCHARGE: -Rx provided ibuprofen At this time pt is stable for d/c to home. Patient is resting comfortably, in no acute distress, nontoxic appearing, talking and smiling. Will provide with patient care instructions and any necessary prescriptions. Patient to take medication as instructed. Care plan and follow-up instructions provided. Patient questions asked and answered. Patient instructed to follow-up with primary care provider in the next 3 days and discuss further referral with PCP to neurologist. ER precautions given. Patient instructed to return to ER immediately for any new or worsening of symptoms including but not limited to fever, neck stiffness , vision changes, and neurological symptoms. - Please note that this Emergency Department Report was dictated using [employer] corporate recruiter technology software, occasionally this can lead to erroneous entry secondary to interpretation by the dictation equipment. CT/MRI/US Diagnostic Results CT/MRI/US Diagnostic Results : Imaging Test Ordered: Ct head Impression No acute intracranial process. Last Vital Signs Date Time Temp Pulse Resp B/P (MAP) Pulse Ox O2 Delivery O2 Flow Rate FiO2 02/19/18 17:19 98.2 02/19/18 16:44 77 14 144/88 95 Room Air Status: improved Disposition: HOME, SELF-CARE Condition: Stable Scripts Ibuprofen* (MOTRIN*) 800 Mg Tablet 800 MG ORAL Q8H, #30 TAB 0 Refills Prov: Ernie Ott 02/19/18 Referrals: [facility],REFERR[facility] (PCP) Patient Instructions: DASH Eating Plan, General Headache Without Cause Additional Instructions: Followup with primary care provider in 3 -5 days. Discuss need for further follow-up with neurology. Take medications as directed. Patient questions asked and answered. ER precautions given, patient instructed to return to ER immediately for any new or worsening of symptoms including but not limited to tract vomiting, chest pain, shortness of breath, vision changes, abdominal pain. Blood pressure mildly elevated at this visit, followup with PCP to discuss medication. Advised on low-sodium diet, advised on diet and exercise. Ernie Ott Feb 19, 2018 17:55
[2018-02-19] MEDS ORDERED: IBUPROFEN800 MG ORAL (18:42)
[2018-02-19 18:48] VITALS: BP 141/83
== END 2018-02-19 18:48 | disposition home or self-care (01) ==
LOC: EMR 17:09
DX: R51 Headache (principal); M54.2 Cervicalgia; F17.200 Nicotine dependence, unspecified, uncomplicated
CPT/HCPCS: 70450; 96372; 99284; J1885